=== PATIENT | female | born 1955 | race Caucasian/White ===

== ENCOUNTER → 2023-02-01 15:49 | Outpatient (BNVA) | payer MEDICARE, OTHER, SELFPAY | PROVIDERS: Visit Provider Student in an Organized Health Care Education/Training Program | DX: M70.51 Other bursitis of knee, right knee (principal) | CPT/HCPCS: 73560; 73565; 99204 ==

== ENCOUNTER 2023-02-22 08:07 | Outpatient (CLI) | payer OTHER, MEDICARE, SELFPAY ==
--- NOTE | 2023-02-22 | MR_ITS ---
WS: [id number] MRI OF THE LEFT FEMUR WITHOUT GADOLINIUM ENHANCEMENT. INDICATION: RIGHT leg pain TECHNIQUE: Coronal T1, coronal STIR, sagittal T1, sagittal STIR, axial T1, axial STIR, and coronal T2 fat saturation imaging FINDINGS: Normal anatomic alignment. No acute fractures. Normal femoral head and neck. Normal visuali zed LEFT pubic rami. No evidence of avascular necrosis. Trace fluid about the greater trochanter deep to the iliotibial band can be seen with slight trochanteric bursitis. Normal visualized soft tissues . No other suspicious findings. MR/MR femur LT con* [id number] IMPRESSION: 1. Normal LEFT femur. 2. Tiny trace of fluid and edema about the greater trochanter can be seen with slight trochanter bursitis.
--- NOTE | 2023-02-22 08:45 | MR_ITS ---
WS: [id number] MRI OF THE RIGHT FEMUR WITHOUT GADOLINIUM ENHANCEMENT. INDICATION: RIGHT leg pain limited range of motion. TECHNIQUE: Coronal T1, coronal STIR sagittal T1 sagittal STIR axial STIR coronal T2 fat sat axial T1. FINDINGS: Small amount of fluid about the greater trochanter deep to the iliotibial band compatible w ith trochanteric bursitis. Normal anatomic alignment RIGHT femur. No acute fractures. Femoral neck is normal in appearance. Norm al femoral shaft. Normal bone marrow signal. No acute fractures. Normal visualized RIGHT thigh soft tissues. Visualized RIGHT femoral head and neck are normal in appe arance. No evidence of avascular necrosis. Visualized RIGHT pubic rami and acetabulum appear normal. Sigmoid diverticulosis. Slightly heterogeneous bone marrow signal likely due to osteopenia. MR/MR femur RT wo con* [id number] IMPRESSION: 1. RIGHT femoral shaft is normal in appearance. No acute fractures. 2. Normal RIGHT femoral head and neck. 3. Small amount of fluid about the greater trochanter suspicious for trochante omid bursitis. 4. No other acute findings.
--- NOTE | 2023-02-22 09:30 | MR_ITS ---
WS: [id number] MRI RIGHT KNEE NONCONTRAST TECHNIQUE: Axial PD, coronal PD fat sat, coronal PD, sagittal PD, and sagittal PD fat-sat images obta ined. CLINICAL INFORMATION: carmen COMPARISON: None. 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 Narrowing of the medial joint compartment. Distal sandor ceps and patella tendons are intact. Hypertrophic patella. Normal ACL and PCL. 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 Medial and lateral collateral ligaments appear intact. Mild chondromalacia patella. No subchondral edema. Chronic thinning of the medial lateral meniscus. No acu te appearing meniscal tears. MR/MR knee RT wo con* [id number] IMPRESSION: 1. ACL and PCL intact. 2. Chronic thinning of the medial and lateral meniscus. No acute meniscal tear s. 3. Slightly hypertrophic patella. Mild chondromalacia patella. 4. Medial and lateral collateral ligaments appear intact. 5. Mild/moderate tricompartmental arthritis. 6. No other acute findings. Outbridge grading:
== END 2023-02-22 08:08 | disposition home or self-care (01) ==
PROVIDERS: Visit Provider Student in an Organized Health Care Education/Training Program
DX: M22.41 Chondromalacia patellae, right knee (principal); M23.300 Other meniscus derangements, unspecified lateral meniscus, right knee; M23.303 Other meniscus derangements, unspecified medial meniscus, right knee
CPT/HCPCS: 73718; 73721

== ENCOUNTER → 2023-09-07 08:57 | Outpatient (BNVA) | payer OTHER, MEDICARE, SELFPAY | PROVIDERS: Visit Provider Student in an Organized Health Care Education/Training Program | DX: M70.51 Other bursitis of knee, right knee | CPT/HCPCS: 99213 ==

== ENCOUNTER → 2023-09-25 07:49 | Outpatient (BNVA) | payer OTHER, MEDICARE, SELFPAY | PROVIDERS: Visit Provider Student in an Organized Health Care Education/Training Program | DX: M70.51 Other bursitis of knee, right knee | CPT/HCPCS: 20610; 99213; J1040 ==

== ENCOUNTER 2024-06-13 06:09 | Outpatient (CLI) | payer MEDICARE, OTHER, SELFPAY ==
--- NOTE | 2024-06-13 06:45 | US_ITS ---
WS: [id number] RIGHT UPPER QUADRANT ULTRASOUND HISTORY: 3 months RUQ abd pain COMPARISON: None available. Liver: 16.2 cm in length. Normal size liver and echogenicity. No bile duct dilatation or mass. Portal Vein: Normal hepatopetal flow with monophasic waveform. Gallbladder: Normally distended gallbladder with no stones or wall thickening. CBD: 0.4 cm Pancreas: Normal size and echogenicity. Right kidney: 10.0 cm in length. Normal size and echogenicity. No hydronephrosis or mass. Aorta and IVC: Unremarkable abdominal aorta and IVC. No ascites. US/US abdomen limited [id number] IMPRESSION: Normal right upper quadrant ultrasound.
--- NOTE | 2024-06-13 07:15 | US_ITS ---
WS: [id number] THYROID ULTRASOUND HISTORY: thyroid nodules COMPARISON: None available. Right lobe: 1.2 cm x 1.4 cm x 4.9 cm (w x ap x l). Volume: 4.1 cm3. Normal size and echotexture. No significant are dominant nodules are present. Left lobe: 1.4 cm x 1.5 cm x 4.3 cm (w x ap x l). Volume: 4.3 cm3. Normal sized thyroid. 2 LEFT thyroid nodules are identified. These are complex cystic nodules. Larges t nodule in the mid thyroid measures 0.8 x 0.7 x 1.0 cm and is spongiform in appearance. Smaller nodu le more anterior within the gland also at a middle depth. There are no microcalcifications or echogen ic foci. Isthmus: 0.2 cm. US/US thyroid [id number] IMPRESSION: 1. TI-RADS 2: No suspicious nodule. No FNA recommended at this time. 2. LEFT thyroid nodules are small and by ultrasound not suspicious. No additio nal follow-up necessary as recommended by the TI-RADS criteria.
== END 2024-06-13 06:10 | disposition home or self-care (01) ==
LOC: RAD 06:10
PROVIDERS: PCP Family Medicine; Visit Provider Family Medicine
DX: E04.2 Nontoxic multinodular goiter (principal); R10.11 Right upper quadrant pain
CPT/HCPCS: 76536; 76705